=== PATIENT | male | born 2000 | race African-American/Black ===

== ENCOUNTER 2022-10-07 10:50 | Emergency (ER) | payer OTHER, SELFPAY ==
[2022-10-07] VITALS (10 sets, daily range): BP systolic 141–144; BP diastolic 82–92; PULSE 69–87; RESP 15; TEMP 37; O2SAT 98–100; BMI 23.4
--- NOTE | 2022-10-07 11:04 | DI.CT.S_ITS ---
PROCEDURE: CT HEAD/BRAIN WO CON INDICATIONS: fall TECHNIQUE: Noncontrast 4.5 mm thick angled axial sections acquired from the foramen magnum to the vertex, with coronal and sagittal reformats. For radiation dose reduction, the following was used: automated exposure control, adjustment of mA and/or kV according to patient size. COMPARISON: None. FINDINGS: Image quality: Excellent. CSF spaces: Basal cisterns are patent. No extra-axial fluid collections. Ventricles are normal in size and shape. Brain: No midline shift. No intracranial masses or hemorrhage. Saul-white matter interface is normal. Skull and face: Calvarium and visualized facial bones are intact, without suspicious lesions. Sinuses: Visualized sinuses and mastoids are clear. IMPRESSION: No acute intracranial abnormalities. Dictated by: Albert Marcelino M.D. on 10/07/2022 at 11:28 Approved by: Albert Marcelino M.D. on 10/07/2022 at 11:29
--- NOTE | 2022-10-07 11:04 | DI.CT.S_ITS ---
PROCEDURE: CT FACIAL BONES WO CON INDICATIONS: fall TECHNIQUE: Noncontrast 2.5 mm thick axial images acquired from the mandible through the frontal sinuses, with coronal and sagittal reformatting. For radiation dose reduction, the following was used: automated exposure control, adjustment of mA and/or kV according to patient size. COMPARISON: [facility], CT, CT CERVICAL SPINE WO CON, 10/07/2022, 11:16. [facility], CT, CT HEAD/BRAIN WO CON, 10/07/2022, 11:16. FINDINGS: Image quality: Excellent. Bones and teeth: Orbital rivera are intact. Sinus rivera show no fracture or deformity. Nasal bones and septum are intact. Visualized portions of the mandible demonstrate no fractures or subluxation. Zygomatic arches are intact. Pterygoid plates are intact. Visualized portions of the skull base and auditory canals are intact. Sinuses: Paranasal sinuses are aerated, without fluid levels, mucosal thickening, or mucoceles. Mastoid air cells are aerated. Soft tissues: No edema, masses, or fluid collections. No enlarged lymph nodes. No soft tissue lacerations or debris. Vascular: Visualized vascular structures appear normal in the absence of contrast. Bony vascular foramina and canals are intact. IMPRESSION: No facial bone fractures. Dictated by: Albert Marcelino M.D. on 10/07/2022 at 11:32 Approved by: Albert Marcelino M.D. on 10/07/2022 at 11:34
--- NOTE | 2022-10-07 11:04 | DI.CT.S_ITS ---
PROCEDURE: CT CERVICAL SPINE WO CON INDICATIONS: fall TECHNIQUE: Noncontrast 3 mm thick sections acquired from the skull base to the T4 level. Sagittal and coronal reformats were then constructed. For radiation dose reduction, the following was used: automated exposure control, adjustment of mA and/or kV according to patient size. COMPARISON: None. FINDINGS: Image quality: Excellent. Bones: No fractures or dislocations. There is anterior spurring at C5-C6. Visualized superior ribs are intact. Soft tissues: Prevertebral soft tissues are normal in thickness. No paravertebral hematomas. No apical pneumothoraces. IMPRESSION: Cervical spine fractures. Dictated by: Albert Marcelino M.D. on 10/07/2022 at 11:30 Approved by: Albert Marcelino M.D. on 10/07/2022 at 11:32
--- NOTE | 2022-10-07 11:04 | DI.RAD.S_ITS ---
PROCEDURE: XR CHEST 2V INDICATIONS: fall TECHNIQUE: 2 views of the chest were acquired. COMPARISON: None. FINDINGS: Surgical changes and devices: None. Lungs and pleura: Lungs are clear. No pleural effusions or pneumothorax. Mediastinum: Mediastinal contours are normal. Heart size is normal. Bones and chest wall: No suspicious bony abnormalities. Soft tissues appear unremarkable. IMPRESSION: No evidence acute pulmonary process. Dictated by: Ant Mccarty M.D. on 10/07/2022 at 11:43 Approved by: Ant Mccarty M.D. on 10/07/2022 at 11:43
--- NOTE | 2022-10-07 11:05 | DI.RAD.S_ITS ---
PROCEDURE: XR SHOULDER RT MIN 2V INDICATIONS: fall pain TECHNIQUE: 3 views of the shoulder were acquired. COMPARISON: None. FINDINGS: Bones: No fractures or dislocations. No suspicious bony lesions. Visualized ribs appear intact. Soft tissues: No suspicious soft tissue calcifications. IMPRESSION: No evidence acute bony abnormality of the right shoulder. If clinical suspicion and/or symptoms persist, further assessment with repeat plain films, or advanced imaging (e.g., CT, MRI, or bone scan) may be helpful for further assessment. Dictated by: Ant Mccarty M.D. on 10/07/2022 at 11:43 Approved by: Ant Mccarty M.D. on 10/07/2022 at 11:43
[2022-10-07] MEDS: HYDROCODONE/ACET 5/325 TABLET 1 TAB PO (11:16)
[2022-10-07] MEDS: KETOROLAC 30 MG/ML VIAL IM (11:16)
[2022-10-07] MEDS: LIDOCAINE 1% (PF) 2ML 2 ML SUBCUT (11:16)
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
== END 2022-10-07 14:25 | disposition home or self-care (01) ==
PROVIDERS: Emergency Provider Emergency Medicine
DX: S40.011A Contusion of right shoulder, initial encounter (principal); S01.511A Laceration without foreign body of lip, initial encounter; V97.0XXA Occupant of aircraft injured in other specified air transport accidents, initial encounter
CPT/HCPCS: 12011; 70450; 70486; 71046; 72125; 73030; 96372; 99284; J1885